=== PATIENT | female | born 1990 | race Caucasian/White ===

== ENCOUNTER → 2017-12-18 09:17 | Outpatient (CLI) | payer OTHER, MEDICAID, SELFPAY ==
[2017-12-18 10:19] LABS: Add Manual Diff / Slide Review NO; Basophils Percent Auto 0.7 % (0-2); Eosinophils Percent Auto 7.9 % (2-4); Hematocrit 39.6 % (36-46); Hemoglobin 13.2 g/dL (12.0-16.0); Lymphocytes Percent Auto 27.2 % (25-40); Mean Corpuscular HGB Conc 33.4 % (30-36); Mean Corpuscular Hemoglobin 29.2 PG (26-34); Mean Corpuscular Volume 87.2 fL (80-100); Monocytes Percent Auto 5.5 % (3-14); Neutrophils Absolute Auto 4100 /uL (3000-5900); Neutrophils Percent Auto 58.7 % (50-75); Platelet Count 263 X10^3/uL (150-400); Red Blood Cell Count 4.54 X10^6/uL (4.0-5.2); Red Cell Distribution Width 13.6 % (11.6-14.8); White Blood Cell Count 6.9 X10^3/uL (4.5-11.0)
[2017-12-18 11:04] LABS: Alanine Aminotransferase 19 IU/L (9-52); Albumin 4.2 g/dL (3.5-5.0); Albumin Globulin Ratio 1.4 (1.0-2.8); Alkaline Phosphatase 66 U/L (38-126); Aspartate Aminotransferase 13 IU/L (14-36); BUN Creatinine Ratio 14.3 (6-22); Bilirubin Total 0.7 mg/dL (0.2-1.3); Blood Urea Nitrogen 10 mg/dL (7-17); Calcium 9.1 mg/dL (8.4-10.2); Carbon Dioxide 27 mmol/L (22-32); Chloride 105 mmol/L (98-107); Estimated Glomerular Filt Rate > 60.0 mL/min (>60); Glucose 118 mg/dL (70-100); HEMOLYSIS < 15 (0-50); Potassium 3.7 mmol/L (3.4-5.1); Sodium 140 mmol/L (137-145); Total Protein 7.2 g/dL (6.3-8.2)
== END ==
PROVIDERS: Internal Medicine; PCP Family Medicine; Visit Provider Family Medicine
DX: R53.83 Other fatigue (principal); L65.9 Nonscarring hair loss, unspecified
CPT/HCPCS: 36415; 80053; 84443; 85025

== ENCOUNTER → 2020-09-02 13:34 | Outpatient (CLI) | payer OTHER, MEDICAID, SELFPAY ==
[2020-09-02 14:15] LABS: COVID19 -Nasal RAPID Negative (Negative)
== END ==
PROVIDERS: Family Provider Family Medicine; PCP Family Medicine; Visit Provider Student in an Organized Health Care Education/Training Program
DX: Z20.822 Contact with and (suspected) exposure to COVID-19 (principal)
CPT/HCPCS: 87635

== ENCOUNTER → 2021-03-30 09:47 | Outpatient (CLI) | payer OTHER, MEDICAID, SELFPAY | PROVIDERS: Family Provider Family Medicine; PCP Family Medicine; Referring Provider Nurse Practitioner Family; Visit Provider Nurse Practitioner Family | DX: J02.9 Acute pharyngitis, unspecified (principal) | CPT/HCPCS: 87070; 87077; 87880 ==

== ENCOUNTER → 2022-12-10 10:09 | Outpatient (CLI) | payer OTHER, MEDICAID, SELFPAY ==
[2022-12-10 12:18] LABS: Add Manual Diff / Slide Review NO; Basophils Absolute Auto 100 /uL (0-100); Basophils Percent Auto 0.7 % (0-2); Eosinophils Absolute Auto 800 /uL (0-450); Eosinophils Percent Auto 10.6 % (2-4); Hematocrit 38.4 % (36-46); Hemoglobin 13.2 g/dL (12.0-16.0); Lymphocytes Absolute Auto 1800 /uL (1100-4500); Lymphocytes Percent Auto 24.7 % (25-40); Mean Corpuscular HGB Conc 34.3 % (30-36); Mean Corpuscular Volume 87.4 fL (80-100); Monocytes Absolute Auto 600 /uL (0-900); Monocytes Percent Auto 7.5 % (3-14); Neutrophils Absolute Auto 4200 /uL (1500-7000); Neutrophils Percent Auto 56.5 % (50-75); Platelet Count 306 X10^3/uL (150-400); Red Blood Cell Count 4.39 X10^6/uL (4.0-5.2); Red Cell Distribution Width 14.1 % (11.6-14.8); White Blood Cell Count 7.4 X10^3/uL (4.5-11.0)
[2022-12-10 12:35] LABS: Alanine Aminotransferase 19 IU/L (<35); Albumin 4.1 g/dL (3.5-5.0); Albumin Globulin Ratio 1.4 (1.0-2.8); Alkaline Phosphatase 64 U/L (38-126); Aspartate Aminotransferase 18 IU/L (14-36); BUN Creatinine Ratio 16.7 (6-22); Bilirubin Total 0.7 mg/dL (0.2-1.3); Blood Urea Nitrogen 12 mg/dL (7-17); Calcium 8.6 mg/dL (8.4-10.2); Carbon Dioxide 25 mmol/L (22-32); Chloride 105 mmol/L (98-107); Estimated Glomerular Filt Rate > 60 mL/min (>60); Glucose 77 mg/dL (70-100); HEMOLYSIS < 15 (0-50); Potassium 3.9 mmol/L (3.4-5.1); Sodium 138 mmol/L (137-145); Total Protein 7.1 g/dL (6.3-8.2)
[2022-12-12 04:10] LABS: Labcorp Hemoglobin (Hb) A1c 5.2 % (4.8-5.6)
== END ==
PROVIDERS: Family Provider Family Medicine; PCP Family Medicine
DX: Z01.812 Encounter for preprocedural laboratory examination (principal)
CPT/HCPCS: 36415; 80053; 83036; 85025

== ENCOUNTER → 2023-02-15 11:27 | Outpatient (CLI) | payer OTHER, MEDICAID, SELFPAY ==
[2023-02-19 20:38] LABS: QuantiFERON Mitogen Value >10.00 IU/mL (.); QuantiFERON Nil Value 0.01 IU/mL (.); QuantiFERON TB Gold Plus Negative (Negative); QuantiFERON TB1 Ag Value 0.01 IU/mL (.); QuantiFERON TB2 Ag Value 0.04 IU/mL (.)
== END ==
PROVIDERS: Family Provider Family Medicine; PCP Family Medicine; Referring Provider Family Medicine; Visit Provider Family Medicine
DX: Z11.1 Encounter for screening for respiratory tuberculosis (principal)
CPT/HCPCS: 36415; 86480

== ENCOUNTER 2023-12-24 09:53 | Emergency (ER) | payer OTHER, SELFPAY ==
[2023-12-24 09:58] VITALS: BP 133/78; PULSE 85; RESP 16; TEMP 36.6; O2SAT 99; BMI 28.8
[2023-12-24] MEDS: FLUORESCEIN 1 MG STRIP EYE-BOTH (11:31)
--- NOTE | 2023-12-24 11:42 | ED.EYEPROB ---
HPI - Eye Problem General Chief complaint: Eye Problems Stated complaint: Right eye infection Time Seen by Provider: 12/24/23 11:26 History of Present Illness HPI Narrative: 33-year-old female presents for right eye irritation and pain. Seen yesterday at the walk-in clinic for eye irritation and crusting discharge. She was diagnosed with pinkeye and discharged with erythromycin ointment. Patient states that her eyes still painful and is here for repeat evaluation. Does not wear glasses or contacts. Related Data Home Medications Medication Instructions Recorded Confirmed levonorgestrel 21 mcg/24 hours (8 intrauterine 08/02/12/23/23 yrs) 52 mg intrauterine device (Mirena) Previous Rx's Medication Instructions Recorded albuterol sulfate 90 mcg/actuation 2 puff inhalation Q4-6H PRN 08/11/21 aerosol inhaler shortness of breath or wheezing #8.5 grams inhalational spacing device #1 ea 08/11/21 ([facility] spacer) erythromycin 5 mg/gram (0.5 %) eye 1 cm EYE-RIGHT .6 times daily #3.5 12/23/23 ointment grams fluticasone propionate 50 1 spray intranasal DAILY #16 grams 12/23/23 mcg/actuation nasal spray,suspension (Flonase Allergy Relief) ketorolac 0.5 % eye drops (Acular) 2 drp EYE-RIGHT QID #5 mL 12/24/23 Allergies Allergy/AdvReac Type Severity Reaction Status Date / Time Sulfa (Sulfonamide Allergy Verified 12/24/23 09:58 Antibiotics) Patient History Medical History Seasonal allergies (~2008) Migraines Headache Keratosis pilaris Eczema Chicken pox Anemia Painful menstrual periods (~2004) Irregular menstrual cycle (~2004) Family History Father Age: 67 High cholesterol Grandfather Age: 91 Heart attack Grandmother Age: 92 Hypertension Grandfather History of heart attack Social History marital status: unmarried,single household members: children (2) Smoking Status: Never smoker alcohol intake: current (ON OCCASION ) substance use type: does not use Smoking Status: Never smoker alcohol intake frequency: other Substance Use Type: marijuana Exam Initial Vital Signs Initial Vital Signs: Vital Signs Temperature 97.8 F 12/24/23 09:58 Pulse Rate 85 12/24/23 09:58 Respiratory Rate 16 12/24/23 09:58 Blood Pressure 133/78 12/24/23 09:58 Pulse Oximetry 99 12/24/23 09:58 Oxygen Delivery Method Room Air 12/24/23 09:58 Const: Awake, alert, no acute distress, nontoxic appearing Eye: Pain resolved with proparacaine administration, scant punctate fluorescein uptake right cornea, no Richard sign Skin: Warm, Dry, intact, no rashes Neuro: AO x3, CN II-XII grossly intact, moves all extremities Course Orders Ordered: Discontinued Medications Fluorescein Sodium (Fluorescein 1 Mg Strip) 1 mg EYE-BOTH NOW ONE Stop: 12/24/23 11:31 Last Admin: 12/24/23 11:31 Dose: 1 mg Documented By: Vital Signs Vital signs: Vital Signs - 8 hr 12/24/23 09:58 Temperature 97.8 F Pulse Rate 85 Respiratory Rate 16 Blood Pressure 133/78 Pulse Oximetry 99 Oxygen Delivery Method Room Air MDM - Eye Problem Differential Diagnosis Differential diagnosis: Likely corneal abrasion, conjunctivitis and hyphema MDM Narrative Medical decision making narrative: Right eye irritation and drainage. Pain resolved with proparacaine administration. Visual acuity intact. There may be scant punctate areas of fluorescein uptake on exam that could be small corneal abrasions. Patient was already on appropriate treatment with erythromycin ointment. Patient counseled to continue to use the erythromycin ointment as scheduled. Acular eyedrops sent to pharmacy of choice for pain control. Discharge Plan Departure Patient Disposition: Home Clinical Impression: Corneal abrasion Instructions: DI for Corneal Abrasion Activity Restrictions/Additional Instructions: Your exam today shows that you may have a couple of small scratches on your right eye. Continue to use the erythromycin ointment as prescribed. The Acular drops may help with your pain. Apply cool compresses, avoid rubbing or touching your eyes, and apply erythromycin ointment just before sleeping to help improve your symptoms. Prescriptions: New ketorolac [Acular] 0.5 % drops 2 drp EYE-RIGHT QID Qty: 5 0RF No Action albuterol sulfate 90 mcg/actuation HFA aerosol inhaler 2 puff inhalation Q4-6H PRN (Reason: shortness of breath or wheezing) Qty: 8.5 1RF (DME) Gavin Milligan [facility] Spacer See Rx Instructions .MEDSUPPLY Qty: 1 0RF Rx Instructions: Please use with albuterol inhaler. erythromycin 5 mg/gram (0.5 %) ointment 1 cm EYE-RIGHT .6 times daily Qty: 3.5 0RF fluticasone propionate [Flonase Allergy Relief] 50 mcg/actuation spray,suspension 1 spray intranasal DAILY Qty: 16 0RF Rx Instructions: administer into each nostril Mirena 20 mcg/24 hr (5 years) intrauterine device Intrauterine Patient Comments: INSERTED 08/02/18 Referrals: Aniket Singh MD [Primary Care Provider] - Stand Alone Forms: Patient Portal/API
[2023-12-24 11:48] VITALS: BP 114/64; PULSE 79; RESP 16; O2SAT 100
== END 2023-12-24 11:49 | disposition home or self-care (01) ==
PROVIDERS: Emergency Provider Emergency Medicine; Family Provider Family Medicine; PCP Family Medicine
DX: S05.01XA Injury of conjunctiva and corneal abrasion without foreign body, right eye, initial encounter (principal)
CPT/HCPCS: 99282

== ENCOUNTER 2024-01-05 13:32 | Emergency (ER) | payer OTHER, SELFPAY ==
[2024-01-05 13:36] VITALS: BP 114/60; PULSE 105; RESP 16; TEMP 37.5; O2SAT 97; BMI 28.8
[2024-01-05 14:00] LABS: COVID19 -Nasal RAPID Negative (Negative)
--- NOTE | 2024-01-05 14:22 | DI.US.S_ITS ---
PROCEDURE: US PELVIC COMPLETE INDICATIONS: LLQ pain, 5yr old IUD, vaginal bleeding TECHNIQUE: Real-time scanning was performed of the pelvic organs, with image documentation. Additional endovaginal scanning was necessary due to incomplete visualization of the adnexal and endometrial structures by transabdominal scanning. COMPARISON: None. FINDINGS: Uterus: Uterus is anteverted and normal in size at 4.8 x 7.0 x 8 point cm. The myometrium is homogeneous. The endometrium measures 6.0 mm combined thickness. No uterine fibroids. Normal central position of IUD. Ovaries: The right ovary measures 3.2 x 2.7 x 2.0 cm, with a calculated ovarian volume of 6.7 cc. The left ovary measures 3.51.8 x 2.0 cm, with a calculated ovarian volume of 6.6 cc. The ovaries have a normal sonographic appearance. Less than 12 follicles can be seen in each ovary. No adnexal masses are seen. Other: No pathologic free abdominal or pelvic fluid. IMPRESSION: Normal IUD positioning, normal appearance of the endometrium and myometrium otherwise. Normal ovaries. We strive to produce accurate, complete, and clear reports of imaging services. To assist us in improving patient care, this report was composed using standard report templates and voice recognition software. Therefore, it may contain abnormal punctuation, insertions and/or omissions. Occasional wrong-word or sound-alike substitutions may occur. Though we review the report and make efforts to correct it, we do recommend that the report be read carefully in proper context to recognize any text inaccuracies. Dictated by: Franc Nielsen M.D. on 01/05/2024 at 15:34 Approved by: Franc Nielsen M.D. on 01/05/2024 at 15:35
--- NOTE | 2024-01-05 14:27 | ED_ITS ---
HPI - Abdominal Pain <Dorota Gorman PA-C - Last Filed: 01/05/24 17:11> General Chief Complaint: Fever Stated Complaint: fever x1wk Time Seen by Provider: 01/05/24 13:55 History of Present Illness HPI narrative: This is a 33-year-old woman who presents with concern for approximately 1 week of fatigue with fevers up to 104 (with forehead thermometer) that do come down with Tylenol. Patient states she has also had a reduced appetite and some nausea and some vomiting Also feeling more tired this week; a few episodes of looser stools but not increased stool frequency or watery stool. On Monday 5 days ago she started having left-sided low pelvic /abdominal pain and states she also had a period start that was very heavy for the 1st 4 days. She has a Mirena IUD in place that has been present for 5 years she believes, she has not had this checked recently and is sexually active. She states that the pain began as sharp pains and gradually progressed to feeling like constant dull aching pain in the lower left. She states it feels unlike normal menses cramping. it is low-grade pain 2 or 3/10 She does state that she has not been having periods since she has had the Mirena in place. In the last 2 days her bleeding has improved and is not as significant. she also notes that she had upper respiratory viral type symptoms a few weeks ago thought she was maybe getting better from this and then this week got sicker again with her symptoms of looser stools, nausea with some vomiting after eating And some fevers. a few weeks ago her symptoms included sinus congestion and cough; these symptoms have pretty much resolved he does still have a dry cough that she says it has not particularly bothersome, nonproductive; she denies any other complaints or concerns. Related Data Home Medications Medication Instructions Recorded Confirmed levonorgestrel 21 mcg/24 hours (8 intrauterine 08/02/18 12/23/23 yrs) 52 mg intrauterine device (Mirena) Previous Rx's Medication Instructions Recorded albuterol sulfate 90 mcg/actuation 2 puff inhalation Q4-6H PRN 08/11/21 aerosol inhaler shortness of breath or wheezing #8.5 grams inhalational spacing device #1 ea 08/11/21 ([facility] spacer) erythromycin 5 mg/gram (0.5 %) eye 1 cm EYE-RIGHT .6 times daily #3.5 12/23/23 ointment grams fluticasone propionate 50 1 spray intranasal DAILY #16 grams 12/23/23 mcg/actuation nasal spray,suspension (Flonase Allergy Relief) ketorolac 0.5 % eye drops (Acular) 2 drp EYE-RIGHT QID #5 mL 12/24/23 ondansetron 4 mg disintegrating 4 mg PO Q8H PRN nausea and 01/05/24 tablet vomiting 10 days #30 tabs Allergies Allergy/AdvReac Type Severity Reaction Status Date / Time Sulfa (Sulfonamide Allergy Verified 12/24/23 09:58 Antibiotics) Review of Systems <Droota Gorman PA-C - Last Filed: 01/05/24 17:11> Review of Systems Narrative: see HPI Patient History <Dorota Gorman PA-C - Last Filed: 01/05/24 17:11> Medical History Seasonal allergies (~2008) Migraines Headache Keratosis pilaris Eczema Chicken pox Anemia Painful menstrual periods (~2004) Irregular menstrual cycle (~2004) Family History Father Age: 67 High cholesterol Grandfather Age: 91 Heart attack Grandmother Age: 92 Hypertension Grandfather History of heart attack Social History marital status: unmarried,single household members: children (2) Smoking Status: Never smoker alcohol intake: current (ON OCCASION ) substance use type: does not use Smoking Status: Never smoker alcohol intake frequency: other Substance Use Type: marijuana Exam <Dorota Gorman PA-C - Last Filed: 01/05/24 17:11> Narrative Exam Narrative: GENERAL: [33] year old patient appears stated age. Well-developed patient, in mild distress. HEAD: Atraumatic. Normocephalic. EYES: Pupils equal round and reactive. Extraocular motions intact. No scleral icterus. No injection or drainage. ENT: Nose without bleeding, purulent drainage. Throat without erythema, tonsillar hypertrophy or exudate. Airway patent.Bilateral ear canals normal in appearance, TMs pearly hartman with cone of light visible. NECK: Trachea midline. Non tender CARDIOVASCULAR: Regular rate and rhythm without murmurs, gallops, or rubs. RESPIRATORY: Clear to auscultation.Breath sounds equal bilaterally. No wheezes, rales, or rhonchi. GASTROINTESTINAL: Abdomen soft, There is tenderness in the left lower quadrant/ pelvis that is fairly specific/ Non generalized, no suprapubic tenderness or flank tenderness otherwise non-tender, nondistended; negative Rovsing, no McBurney's point tenderness, negative Rudolph's sign. EXTREMITIES: No edema or joint tenderness. BACK: Nontender without deformity or crepitance. No flank tenderness. NEURO: AOx3. SKIN: No rash or erythema of visible areas Initial Vital Signs Initial Vital Signs: Vital Signs Temperature 99.5 F 01/05/24 13:36 Pulse Rate 105 H 01/05/24 13:36 Respiratory Rate 16 01/05/24 13:36 Blood Pressure 114/60 01/05/24 13:36 Pulse Oximetry 97 01/05/24 13:36 Oxygen Delivery Method Room Air 01/05/24 13:36 <Alecia Mane DO - Last Filed: 01/07/24 11:30> Initial Vital Signs Initial Vital Signs: Vital Signs Temperature 99.5 F 01/05/24 13:36 Pulse Rate 105 H 01/05/24 13:36 Respiratory Rate 16 01/05/24 13:36 Blood Pressure 114/60 01/05/24 13:36 Pulse Oximetry 97 01/05/24 13:36 Oxygen Delivery Method Room Air 01/05/24 13:36 Course <Dorota Gorman PA-C - Last Filed: 01/05/24 17:11> Course Course Narrative: Discussed with the patient we will be evaluating with ultrasound for her fairly point specific left lower quadrant abdominal pain that coincided with the start of her menses/vaginal bleeding on Monday. She is agreeable to IV and labs. She has had difficulty urinating thus far feels she just isn't ready to she is drinking fluids but will bolus fluids through her IV to see if we can get a urine sample as well. 1428 Orders Ordered: Discontinued Medications Sodium Chloride (Normal Saline 0.9%) 1,000 mls @ 1,000 mls/hr IV BOLUS ONE Stop: 01/05/24 15:26 Last Infusion: 01/05/24 16:07 Dose: Infused Documented By: Admin: 01/05/24 15:25 Dose: 1,000 mls/hr Documented By: PIOTR Vital Signs Vital signs: Vital Signs - 8 hr 01/05/24 13:36 01/05/24 16:24 Temperature 99.5 F 98.8 F Pulse Rate 105 H 83 Respiratory Rate 16 16 Blood Pressure 114/60 114/57 L Pulse Oximetry 97 98 Oxygen Delivery Method Room Air Room Air <Alecia Mane DO - Last Filed: 01/07/24 11:30> Orders Ordered: Discontinued Medications Sodium Chloride (Normal Saline 0.9%) 1,000 mls @ 1,000 mls/hr IV BOLUS ONE Stop: 01/05/24 15:26 Last Infusion: 01/05/24 16:07 Dose: Infused Documented By: Admin: 01/05/24 15:25 Dose: 1,000 mls/hr Documented By: PIOTR Vital Signs Vital signs: Vital Signs - 8 hr 01/05/24 13:36 01/05/24 16:24 Temperature 99.5 F 98.8 F Pulse Rate 105 H 83 Respiratory Rate 16 16 Blood Pressure 114/60 114/57 L Pulse Oximetry 97 98 Oxygen Delivery Method Room Air Room Air MDM - Abdominal Pain <Dorota Gorman PA-C - Last Filed: 01/05/24 17:11> Differential Diagnosis Differential diagnosis: Likely abdominal pain, diverticulitis, gastroenteritis and other (viral illness, gastritis, gastroenteritis, painful menses, IUD) Medical Records Attestation: I reviewed the patient's medical records. Lab Data Attestation: I reviewed the patient's lab results. 01/05/24 14:40 01/05/24 14:40 Labs: Lab Results 01/05/24 01/05/24 01/05/24 Range/Units 13:40 14:40 15:33 WBC 12.8 H (4.5-11.0) X10^3/uL RBC 3.95 L (4.0-5.2) X10^6/uL Hgb 11.7 L (12.0-16.0) g/dL Hct 34.5 L (36-46) % MCV 87.3 (80-100) fL MCH 29.6 (26-34) PG MCHC 34.0 (30-36) % RDW 13.4 (11.6-14.8) % Plt Count 314 (150-400) X10^3/uL Neut % (Auto) 82.7 H (50-75) % Lymph % (Auto) 9.4 L (25-40) % [place] % (Auto) 7.1 (3-14) % Eos % (Auto) 0.3 L (2-4) % Baso % (Auto) 0.5 (0-2) % Neut # (Auto) 39435 H (7231-8775) /uL Lymph # (Auto) 1200 (4665-2781) /uL [place] # (Auto) 900 (0-900) /uL Eos # (Auto) 0 (0-450) /uL Baso # (Auto) 100 (0-100) /uL Sodium 134 L (137-145) mmol/L Potassium 3.4 (3.4-5.1) mmol/L Chloride 102 (98-107) mmol/L Carbon Dioxide 24 (22-32) mmol/L BUN 7 (7-17) mg/dL Creatinine 0.74 (0.52-1.04) mg/dL Estimated GFR > 60 (>60) mL/min BUN/Creatinine Ratio 9.5 (6-22) Glucose 156 H (70-100) mg/dL Calcium 8.5 (8.4-10.2) mg/dL Total Bilirubin 0.7 (0.2-1.3) mg/dL AST 19 (14-36) IU/L ALT 27 (<35) IU/L Alkaline Phosphatase 66 (38-126) U/L Total Protein 7.0 (6.3-8.2) g/dL Albumin 3.9 (3.5-5.0) g/dL Globulin 3.1 (1.7-4.1) g/dL Albumin/Globulin Ratio 1.3 (1.0-2.8) HCG, Quant < 2.39 mIU/mL Urine Color Yellow Urine Appearance Clear Urine pH 6.0 (4.5-8.0) Ur Specific [place] <=1.005 (1.000-1.035) Urine Protein Negative (Negative) Urine Glucose (UA) Negative (Negative) g/dL Urine Ketones Negative (NEGATIVE) Urine Occult Blood Trace-intact (Negative) Urine Nitrate Negative (Negative) Urine Bilirubin Negative (NEGATIVE) Urine Urobilinogen 2.0 H (0.2) E.U./dL Ur Leukocyte Esterase Negative (NEGATIVE) Urine RBC None seen (0-5/HPF) Urine WBC None seen (0-5/HPF) Ur Squamous Epith Cells None seen (0-5/HPF) Urine Bacteria None seen (None) Ur Culture Indicated? Cult not indicated Vol Urine Centrifuged 10ml (spun) SARS-CoV-2 (PCR) Negative (Negative) Point of care testing: Point of Care Testing Test Results Negative Imaging Data US - RECYCLING CENTER OPERATOR: My Impression: Agree with Radiology interpretation Radiologist's Impression: [address] [address] Ultrasound Report Signed Patient: Dionne Barlow MR#: [id number] : 1990 Acct:[id number] Age/Sex: 33 / F Date of Service: 01/05/24 Loc: ED Accession Number: [id number] Procedure: US pelvic complete Ordering Provider: Dorota Gorman PA-C PROCEDURE: US PELVIC COMPLETE INDICATIONS: LLQ pain, 5yr old IUD, vaginal bleeding TECHNIQUE: Real-time scanning was performed of the pelvic organs, with image documentation. Additional endovaginal scanning was necessary due to incomplete visualization of the adnexal and endometrial structures by transabdominal scanning. COMPARISON: None. FINDINGS: Uterus: Uterus is anteverted and normal in size at 4.8 x 7.0 x 8 point cm. The myometrium is homogeneous. The endometrium measures 6.0 mm combined thickness. No uterine fibroids. Normal central position of IUD. Ovaries: The right ovary measures 3.2 x 2.7 x 2.0 cm, with a calculated ovarian volume of 6.7 cc. The left ovary measures 3.51.8 x 2.0 cm, with a calculated ovarian volume of 6.6 cc. The ovaries have a normal sonographic appearance. Less than 12 follicles can be seen in each ovary. No adnexal masses are seen. Other: No pathologic free abdominal or pelvic fluid. IMPRESSION: Normal IUD positioning, normal appearance of the endometrium and myometrium otherwise. Normal ovaries. We strive to produce accurate, complete, and clear reports of imaging services. To assist us in improving patient care, this report was composed using standard report templates and voice recognition software. Therefore, it may contain abnormal punctuation, insertions and/or omissions. Occasional wrong-word or sound-alike substitutions may occur. Though we review the report and make efforts to correct it, we do recommend that the report be read carefully in proper context to recognize any text inaccuracies. Dictated by: Franc Nielsen M.D. on 01/05/2024 at 15:34 Approved by: Franc Nielsen M.D. on 01/05/2024 at 15:35 [facility] Narrative Medical decision making narrative: this is a generally healthy 33-year-old woman presenting with concern for feeling somewhat fatigued with some fevers in the last week and some loose stools as well as nausea with some vomiting and reduced oral intake. She is fairly we today initially slightly tachycardic. She was afebrile today in the ER, with an unremarkable exam except for some left lower quadrant tenderness. Considering she has an IUD in place that has been present for 5 years and also had her 1st menses in years that began Monday 5 days ago, further evaluation with UA to check for UTI and as well as ultrasound for further evaluation for possible cause of her symptomsPotentially related to pelvic etiology. Patient is pelvic ultrasound returned with normal-appearing normal- sized ovaries andHomogeneousEchotexture of the uterus with no fluid in the adnexa.Patient also received a 1 L fluid bolus today as well as basic labs including CBC and CMP. HCG /urine were negative. She had a mild leukocytosis and mild hyperglycemia, possibly coincident. She has been drinking soda quite a bit as this is what she has been keeping down well. Based on her urine today which is fairly unremarkable I have low suspicion for ureterolithiasis or UTI, she also had no CVA tenderness. She does have a mild dry cough butHer lungs are clear and she has no pain with coughing or breathing and I am less suspicious for pneumonia. An appendicitis also seems unlikely given duration/persistence of symptoms as well as the veryMuch left-sidedLow point specific tenderness with no other abdominal tenderness and patient's ultrasound while it was to evaluate the pelvis did not note any fluid collection or abnormality in that area which would likely be present if patient had an atypical appendicitis presentation causing her pain. Her HEENT exam does not suggest bacterial process. Discussed all of this with the patient and note that we do not have a definite answer for her symptoms. She is in understanding of this and comfortable with the plan to go home continue monitoring and follow up with her PCP. PrescriptionFor Zofran today for nausea. She is also advised to follow up closely with her women's health provider /PCP regarding her Mirena IUD as she is having periods again now on it and it is 5 years old and may need to be replaced. Return precautions provided, follow-up plan discussed, all questions answered. <Alecia Mane, DO - Last Filed: 01/07/24 11:30> Lab Data Labs: Lab Results 01/05/24 01/05/24 01/05/24 Range/Units 13:40 14:40 15:33 WBC 12.8 H (4.5-11.0) X10^3/uL RBC 3.95 L (4.0-5.2) X10^6/uL Hgb 11.7 L (12.0-16.0) g/dL Hct 34.5 L (36-46) % MCV 87.3 (80-100) fL MCH 29.6 (26-34) PG MCHC 34.0 (30-36) % RDW 13.4 (11.6-14.8) % Plt Count 314 (150-400) X10^3/uL Neut % (Auto) 82.7 H (50-75) % Lymph % (Auto) 9.4 L (25-40) % [place] % (Auto) 7.1 (3-14) % Eos % (Auto) 0.3 L (2-4) % Baso % (Auto) 0.5 (0-2) % Neut # (Auto) 90620 H (7765-2686) /uL Lymph # (Auto) 1200 (2462-6706) /uL [place] # (Auto) 900 (0-900) /uL Eos # (Auto) 0 (0-450) /uL Baso # (Auto) 100 (0-100) /uL Sodium 134 L (137-145) mmol/L Potassium 3.4 (3.4-5.1) mmol/L Chloride 102 (98-107) mmol/L Carbon Dioxide 24 (22-32) mmol/L BUN 7 (7-17) mg/dL Creatinine 0.74 (0.52-1.04) mg/dL Estimated GFR > 60 (>60) mL/min BUN/Creatinine Ratio 9.5 (6-22) Glucose 156 H (70-100) mg/dL Calcium 8.5 (8.4-10.2) mg/dL Total Bilirubin 0.7 (0.2-1.3) mg/dL AST 19 (14-36) IU/L ALT 27 (<35) IU/L Alkaline Phosphatase 66 (38-126) U/L Total Protein 7.0 (6.3-8.2) g/dL Albumin 3.9 (3.5-5.0) g/dL Globulin 3.1 (1.7-4.1) g/dL Albumin/Globulin Ratio 1.3 (1.0-2.8) HCG, Quant < 2.39 mIU/mL Urine Color Yellow Urine Appearance Clear Urine pH 6.0 (4.5-8.0) Ur Specific [place] <=1.005 (1.000-1.035) Urine Protein Negative (Negative) Urine Glucose (UA) Negative (Negative) g/dL Urine Ketones Negative (NEGATIVE) Urine Occult Blood Trace-intact (Negative) Urine Nitrate Negative (Negative) Urine Bilirubin Negative (NEGATIVE) Urine Urobilinogen 2.0 H (0.2) E.U./dL Ur Leukocyte Esterase Negative (NEGATIVE) Urine RBC None seen (0-5/HPF) Urine WBC None seen (0-5/HPF) Ur Squamous Epith Cells None seen (0-5/HPF) Urine Bacteria None seen (None) Ur Culture Indicated? Cult not indicated Vol Urine Centrifuged 10ml (spun) SARS-CoV-2 (PCR) Negative (Negative) Point of care testing: Point of Care Testing Test Results Negative Discharge Plan Departure Patient Disposition: Home Clinical Impression: Pelvic pain Fever Qualifiers: Fever type: unspecified Qualified Code(s): R50.9 - Fever, unspecified Activity Restrictions/Additional Instructions: *You have been diagnosed with [No specific diagnosis, pelvic discomfort/pain ] *What to do: *Please continue to take your regular medications as directed. [ ] New medication prescriptions sent to your pharmacy: [ ] [ ] New medication written as a paper prescription [x ] No new medications given *Please follow up with your primary care provider in 2-3 days, call for an appointment. Let them know you were seen in the Emergency Department and that we ask that you be seen in follow up. We will electronically transmit a record of today's note if your PCP is in our system. you came into the ER today for evaluation with some fevers on and off for the past week or so as well as some new menses for the 1st time in years with associated pelvic pain. Because you have an IUD that has been in place for 5 years and have had pain and bleeding, we did an ultrasound to further evaluate as well as obtained some labs. Your IUD is positioned appropriately in your uterus and ovaries appear to be normal in size per the ultrasound preliminary report. We also checked your urine and test your urine did not show evidence of a UTI and you are not based on urine or your blood labs. You did have a very slight increase in your white blood cell count today this can happen due to either inflammation, sometimes due to infection or to stress. your blood sugar was a little bit elevated today but you have been drinking a lot of soda including today which likely explains this.Your labs otherwise looked good today. We also tested you for COVID which came back negative. It is certainly possible that you have been dealing with a viral illness or also a possibility that you have a bacterial infection that we did not find, your exam today did not suggest a bacterial infection of the throat ears or upper respiratory System. If you do continued to have fevers at home or high fevers or persistent or new symptoms of concern please make sure you seek re-evaluation. You should definitely follow up closely with your women's health provider or primary care provider regarding your IUD as it is likely near or at the limit of its ability to provide effective control since he has had it for 5 years and you should talk to them about having this removed and replaced or other options for control as desired. I am going to prescribe antinausea Medicine for you so that you can hopefully get more fluids down and food down. Be thoughtful about foods that you eat and ifYou have new or worsening symptoms or a change in your abdominal discomfort or persistent fevers please make sure you seek further evaluation. *If you do not have a primary care provider please contact the [facility] Resource line at [phone]. They will ask some questions about your medical history and help get you set up with a doctor in the community. *Return to Emergency Department if you should have any new, worsening or concerning symptoms, such as [fever greater than 101 F, shaking chills, worsening pain, persistent vomiting or other bothersome symptoms] Prescriptions: New ondansetron 4 mg tablet,disintegrating 4 mg PO Q8H PRN (Reason: nausea and vomiting) 10 Days Qty: 30 0RF No Action albuterol sulfate 90 mcg/actuation HFA aerosol inhaler 2 puff inhalation Q4-6H PRN (Reason: shortness of breath or wheezing) Qty: 8.5 [facility]RF [facility] See Rx Instructions .MEDSUPPLY Qty: 1 0RF Rx Instructions: Please use with albuterol inhaler. erythromycin 5 mg/gram (0.5 %) ointment 1 cm EYE-RIGHT .6 times daily Qty: 3.5 0RF fluticasone propionate [Flonase Allergy Relief] 50 mcg/actuation spray,suspension 1 spray intranasal DAILY Qty: 16 0RF Rx Instructions: administer into each nostril Mirena 20 mcg/24 hr (5 years) intrauterine device Intrauterine Patient Comments: INSERTED 08/02/18 ketorolac [Acular] 0.5 % drops 2 drp EYE-RIGHT QID Qty: 5 0RF Referrals: Aniket Singh MD [Primary Care Provider] - Stand Alone Forms: Patient Portal/API ED Sign-out <Alecia Mane DO - Last Filed: 01/07/24 11:30> Cosign ED Attending Cosignature Attestation: I was available for consultation.
[2024-01-05 14:49] LABS: Add Manual Diff / Slide Review NO; Basophils Absolute Auto 100 /uL (0-100); Basophils Percent Auto 0.5 % (0-2); Eosinophils Absolute Auto 0 /uL (0-450); Eosinophils Percent Auto 0.3 % (2-4); Hematocrit 34.5 % (36-46); Hemoglobin 11.7 g/dL (12.0-16.0); Lymphocytes Absolute Auto 1200 /uL (1100-4500); Lymphocytes Percent Auto 9.4 % (25-40); Mean Corpuscular Hemoglobin 29.6 PG (26-34); Mean Corpuscular Volume 87.3 fL (80-100); Monocytes Absolute Auto 900 /uL (0-900); Monocytes Percent Auto 7.1 % (3-14); Neutrophils Absolute Auto 10600 /uL (1500-7000); Neutrophils Percent Auto 82.7 % (50-75); Platelet Count 314 X10^3/uL (150-400); Red Blood Cell Count 3.95 X10^6/uL (4.0-5.2); Red Cell Distribution Width 13.4 % (11.6-14.8); White Blood Cell Count 12.8 X10^3/uL (4.5-11.0)
[2024-01-05 15:02] LABS: Alanine Aminotransferase 27 IU/L (<35); Albumin 3.9 g/dL (3.5-5.0); Albumin Globulin Ratio 1.3 (1.0-2.8); Alkaline Phosphatase 66 U/L (38-126); Aspartate Aminotransferase 19 IU/L (14-36); BUN Creatinine Ratio 9.5 (6-22); Bilirubin Total 0.7 mg/dL (0.2-1.3); Blood Urea Nitrogen 7 mg/dL (7-17); Calcium 8.5 mg/dL (8.4-10.2); Carbon Dioxide 24 mmol/L (22-32); Chloride 102 mmol/L (98-107); Estimated Glomerular Filt Rate > 60 mL/min (>60); Globulin 3.1 g/dL (1.7-4.1); Glucose 156 mg/dL (70-100); HEMOLYSIS < 15 (0-50); Potassium 3.4 mmol/L (3.4-5.1); Sodium 134 mmol/L (137-145)
[2024-01-05 15:19] LABS: HCG Quantitative /Beta subunit < 2.39 mIU/mL
[2024-01-05] MEDS: SODIUM CHLORIDE 0.9% 1,000 ML 1000 ML IV (15:25)
[2024-01-05 15:45] LABS: Appearance Urine UA CLEAR; Bilirubin Urine UA NEGATIVE (NEGATIVE); Color Urine UA YELLOW; Glucose Urine UA NEGATIVE (Negative); Ketones Urine UA NEGATIVE (NEGATIVE); Leukocyte Esterase Urine UA NEGATIVE (NEGATIVE); Nitrite Urine UA NEGATIVE (Negative); Occult Blood Urine UA TRACE-INTACT (Negative); Protein Urine UA NEGATIVE (Negative); Specific Gravity Urine UA <=1.005 (1.000-1.035)
[2024-01-05 15:59] LABS: Bacteria Urine None Seen; Culture Indicated Urine Cult Not Indicated; RBC Urine None Seen (0-5/HPF); Squamous Epithelial Cell Urine None Seen (0-5/HPF); Urine Volume 10mL (spun); WBC Urine None Seen (0-5/HPF)
[2024-01-05 16:24] VITALS: BP 114/57; PULSE 83; RESP 16; TEMP 37.1; O2SAT 98
== END 2024-01-05 17:03 | disposition home or self-care (01) ==
PROVIDERS: Emergency Medicine; Emergency Provider Student in an Organized Health Care Education/Training Program; Family Provider Family Medicine; PCP Family Medicine
DX: R10.2 Pelvic and perineal pain (principal); R50.9 Fever, unspecified
CPT/HCPCS: 36415; 76856; 80053; 81001; 81025; 84702; 85025; 87635; 96360; 99284